=== PATIENT | female | born 1980 | race Two or more races ===

== ENCOUNTER 2023-02-12 16:00 | Emergency (ER) | payer BC, OTHER ==
[~2023-02-12] VITALS: Ht 175.3 cm; Wt 104.0 kg
[2023-02-12 16:39] LABS: Basophils # (auto) 0.1 10 ^3/uL (0-0.2); Eosinophils # (auto) 0.1 10 ^3/uL (0-0.8); Lymphocytes # (auto) 2.8 10 ^3/uL (0.4-5.4); Monocytes # (auto) 0.8 10 ^3/uL (0-1.3); Monocytes % (auto) 10.8 % (0.0-12.0)
[2023-02-12 16:41] LABS: Lymphocytes % (auto) 36.8 % (10.0-50.0); Mean Corpuscular Hemoglobin 24.2 pg (28.0-32.0); Mean Corpuscular Hgb Conc. 32.3 g/dL (32.0-36.0); Mean Corpuscular Volume 74.8 fL (80.0-100.0); Neutrophils # (auto) 3.8 10 ^3/uL (1.6-8.6); Neutrophils % (auto) 50.4 % (37.0-80.0); Nucleated Red Blood Cells % 0.1 %; Red Blood Cells 4.94 10^6/uL (4.0-5.20); Red Cell Distribution Width 18.6 % (11.8-14.3); White Blood Cell 7.6 10^3/uL (4.4-10.8)
[2023-02-12 16:42] LABS: Albumin 4.2 g/dL (3.4-5.0); Calcium 9.7 mg/dL (8.5-10.1)
[2023-02-12 16:45] LABS: INR 0.98 (0.9-1.15); Partial Thromboplastin Time 25.2 sec (24.6-33.4)
[2023-02-12 16:46] LABS: BUN/Creatinine Ratio 11.8 (10.0-20.0); Bilirubin, Total 0.4 mg/dL (0.2-1.0); Total Protein 7.6 g/dL (6.4-8.2)
[2023-02-12] MEDS ORDERED: CYCLOBENZAPRINE HCL 10 MG TAB PO ONE ×2 (17:00→17:30)
[2023-02-12] MEDS ORDERED: KETOROLAC TROMETH 30 MG/ML 1ML VIAL IV ONE ×2 (17:00→17:30)
[2023-02-12] MEDS ORDERED: CYCL-611 PO (19:51)
[2023-02-12] MEDS ORDERED: NAP500T PO (19:51)
[2023-02-12 20:12] VITALS: BP 129/79
== END 2023-02-12 20:33 | disposition home or self-care (01) ==
LOC: ER 16:00
DX: R07.89 Other chest pain (principal)
CPT/HCPCS: 36415; 71045; 80053; 84484; 85025; 85610; 85730; 93005; 96374; 99285; J1885